=== PATIENT | female | born 1960 | race Caucasian/White ===

== ENCOUNTER 2017-10-12 09:46 | Emergency (ER) | payer OTHER, MEDICARE ==
[~2017-10-12] VITALS: Ht 160 cm; Wt 63.5 kg
[2017-10-12 10:06] LABS: ABSOLUTE BASOPHIL COUNT 0 /CUMM (0.0-0.2); ABSOLUTE EOSINOPHIL COUNT 0.1 /CUMM (0.0-0.7); ABSOLUTE GRANULOCYTE CT 7.9 /CUMM (1.4-6.5); ABSOLUTE LYMPH COUNT 1.3 /CUMM (1.2-3.4); BASOPHIL % 0.3 % (0.0-2.0); EOSINOPHIL % 0.5 % (0-5); GRANULOCYTE % 76.8 % (42.2-75.2); HEMATOCRIT 36.6 % (37-47); MEAN CORPUSCULAR HGB 30.1 PG (27.0-31.0); MEAN CORPUSCULAR HGB CONC 34.4 G/DL (33.0-37.0); MEAN CORPUSCULAR VOLUME 87.4 FL (81.0-99.0); MEAN PLATELET VOLUME 7.2 FL (7.4-10.4); PLATELET COUNT 315 /CUMM (130-400); RBC DISTRIBUTION WIDTH 13.2 % (11.5-14.5); RED BLOOD CELL CT 4.19 /CUMM (4.20-5.40); WHITE BLOOD CELL COUNT 10.3 /CUMM (4.8-10.8)
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
[2017-10-12] MEDS ORDERED: CALCITRIOL0.25 MC1 PO (12:26)
[2017-10-12] MEDS ORDERED: ATENOLOL25 M1 PO (12:29)
[2017-10-12] MEDS ORDERED: VALIUM5 M2 PO (12:30)
[2017-10-12] MEDS ORDERED: WELLBUTRIN XL300 M2 PO (12:30)
[2017-10-12] MEDS ORDERED: LEVOTHYROXINE112 MCG PO (12:30)
[2017-10-12] MEDS ORDERED: MELOXICAM15 M1 PO (12:31)
[2017-10-12] MEDS ORDERED: LAMICTAL XR100 M1 PO (12:31)
[2017-10-12] MEDS ORDERED: DILAUDID4 M1 PO (12:32)
[2017-10-12] MEDS ORDERED: OMEPRAZOLE20 M2 PO (12:32)
--- NOTE | 2017-10-12 13:29 | CT SCAN REPORT ---
EXAMINATION: CT ABDOMEN AND PELVIS WITH CONTRAST CLINICAL INFORMATION: Left flank pain. Presumptive diagnosis: Acute abdomen. COMPARISON: None TECHNIQUE: Multidetector volumetric imaging was performed of the abdomen and pelvis following IV administration of 95 mL of Optiray 320 intravenous contrast. Sagittal and coronal reformatted images were obtained on the technologist's workstation. DLP: 982.31 mGy-cm (chest, abdomen, and pelvis combined) FINDINGS: LUNG BASES: Bilateral dependent atelectasis or consolidation. Small right and [id number] left pleural effusions. LIVER, GALLBLADDER, AND BILIARY TREE: The liver is normal in size, shape, and attenuation. No focal hepatic lesion or biliary ductal dilatation is present. The gallbladder is unremarkable with no evidence of radiopaque gallstones, gallbladder wall thickening, or obvious pericholecystic inflammatory changes. PANCREAS: Unremarkable. SPLEEN: There is a 1 cm low-density lesion in the spleen which does not measure water density. This is indeterminate, although statistically most likely represents a hemangioma. ADRENAL GLANDS: Unremarkable. KIDNEYS AND URETERS: There are subcentimeter low-density lesions in each kidney, most likely representing cysts but otherwise too small to characterize. BLADDER: Unremarkable. GASTROINTESTINAL TRACT: There are a few sigmoid diverticula. There is no evidence of diverticulitis. The small bowel is unremarkable. The appendix is not clearly visualized. ABDOMINAL WALL: No significant hernia is appreciated. LYMPH NODES: Normal. VASCULAR: There is a circumaortic left renal vein. The vascular structures are otherwise unremarkable. PELVIC VISCERA: Unremarkable. OSSEOUS STRUCTURES: There is [id number] multilevel degenerative disc disease, most severe at the L5-S1 level. IMPRESSION: 1. Bilateral dependent atelectasis or consolidation in the lungs. Small right and small to moderate left effusions. 2. Indeterminate low-density 1 cm lesion in the spleen, statistically most likely represents a hemangioma or complex cyst. 3. Subcentimeter low density lesions in each kidney most likely representing cysts but otherwise too small to characterize. 4. Mild sigmoid diverticulosis with no evidence of diverticulitis.
--- NOTE | 2017-10-12 13:30 | CT SCAN REPORT ---
EXAMINATION: CT ANGIOGRAM OF THE CHEST WITH AND WITHOUT CONTRAST (CT PULMONARY ANGIOGRAM FOR PE) CLINICAL INFORMATION: Left-sided rib pain, shortness of breath after surgery 10/05/2017. Presumptive diagnosis: Pulmonary embolus, pneumonia, rib fracture. COMPARISON: None TECHNIQUE: Prior to contrast administration, noncontrast localization images were obtained. Subsequently, multidetector volumetric imaging was performed from the thoracic inlet to below the diaphragms following the administration of 95 mL Optiray 320 intravenous contrast. No contrast reaction reported. Sagittal, coronal, and MIP oblique sagittal reformatted images were obtained on the CT workstation, uploaded to PACS, and reviewed. DLP: 982.31 mGy-cm (chest, abdomen, and pelvis combined) FINDINGS: QUALITY OF STUDY/CONTRAST BOLUS: Satisfactory PULMONARY ARTERIES: No central or segmental pulmonary emboli. THORACIC AORTA: No aneurysm or dissection. LUNG: There is bilateral lower lobe dependent atelectasis or consolidation, left greater than right. PLEURA: There are small to moderate left and small right pleural effusions. MEDIASTINUM: Normal heart size. No pericardial effusion. No hilar or mediastinal lymphadenopathy. No evidence of septal bowing or right heart strain. CHEST WALL/AXILLA: No axillary or internal mammary lymphadenopathy. OSSEOUS STRUCTURES: No acute or suspicious osseous abnormality. UPPER ABDOMEN: There is a 1 cm low density lesion in the superior spleen. This does not measure water density and the etiology is uncertain, although statistically, this most likely represents a hemangioma. No reflux of contrast into the hepatic veins to suggest elevated right heart pressures. IMPRESSION: No evidence of pulmonary emboli. Bilateral lower lobe dependent atelectasis or consolidation, left greater than right. Small to moderate left and small right pleural effusions. Low density 1 cm lesion in the spleen of indeterminate etiology, although statistically most likely represents a hemangioma. VTE: negative.
[2017-10-12] MEDS ORDERED: IBUPROFEN800 M1 PO (15:22)
[2017-10-12] MEDS ORDERED: ZITHROMAX250 M2 PO (15:22)
[2017-10-12 15:51] VITALS: BP 156/81
== END 2017-10-12 16:04 ==
LOC: ERH 09:46
PROVIDERS: Emergency Medicine
DX: R07.81 Pleurodynia (principal); R10.9 Unspecified abdominal pain; I10 Essential (primary) hypertension; F41.9 Anxiety disorder, unspecified; Z87.891 Personal history of nicotine dependence
CPT/HCPCS: 74177; 93005; 93010; 96374; 96375; 96376; J1885